=== PATIENT | female | born 1980 | race Two or more races ===

== ENCOUNTER 2018-08-03 19:55 | Emergency (ER) | payer MEDICAID, OTHER ==
[~2018-08-03] VITALS: Ht 167.6 cm; Wt 100.7 kg
--- NOTE | 2018-08-03 20:15 | NUR ---
Pt came to emergency complaining of lower left quadrant pain radiating to the back. Pt states that she has a HX of chronic pancreatitis. Pt stated she went to [facility] this morning and they did labs, ultrasound and gave her pain medications. She states the pain never went away so she went back but ending up coming to [facility] to be evaluated. Pt is AAXO4. Respirations even and unlabored. Pt put on the monitor. Pending eval from ER .
--- NOTE | 2018-08-03 20:33 | NUR ---
KATERINA BENAVIDES at bedside for evaluation.
[2018-08-03] MEDS ORDERED: oxyCODONE/APAP (5/325 MG) 1 UDTAB TABLET ONE (20:43)
[2018-08-03] MEDS ORDERED: oxyCODONE/APAP (5/325 MG) 1 UDTAB TABLET PO ONE (21:00)
--- NOTE | 2018-08-03 21:00 | NUR ---
Pt complaining that she is still in pain, and that the pain medication was not effective. ER PA aware.
[2018-08-03] MEDS ORDERED: KETOROLAC TROMETHAMINE INJ 30 MG/ML VIAL ONE (21:41)
[2018-08-03] MEDS ORDERED: KETOROLAC TROMETHAMINE INJ 30 MG/ML VIAL IM ONE (22:00)
--- NOTE | 2018-08-03 22:08 | NUR ---
Patient discharged to home in stable condition. Written and verbal after care instructions given. Patient verbalizes understanding of instruction. Pt ambulatory with steady gait. NAD NOTED.
[2018-08-03 22:11] VITALS: BP 128/78
== END 2018-08-03 22:15 | disposition home or self-care (01) ==
LOC: ER 20:05
DX: G89.29 Other chronic pain (principal); K86.1 Other chronic pancreatitis; E11.9 Type 2 diabetes mellitus without complications; F10.10 Alcohol abuse, uncomplicated; Y90.9 Presence of alcohol in blood, level not specified; Z98.890 Other specified postprocedural states
CPT/HCPCS: J1885

== ENCOUNTER 2020-02-21 17:03 | Emergency (ER) | payer OTHER ==
[~2020-02-21] VITALS: Ht 167.6 cm; Wt 89.8 kg
--- NOTE | 2020-02-21 17:10 | NUR ---
[id number] CALLED CONCERNED ABOUT PATIENT "WANTS TO DROWN SELF", TO ER BED 11, HOOKED TO MONITOR, CHANGED TO HOSP GOWN, BLANKET PROVIDED. PATIENT DENIES HAVING SUICIDAL THOUGHTS. WHEN ASKED IF REMEMBERS ANYTHING, STATES "I DON'T REMEMBER ANYTHING". SITTER AT BEDSIDE FOR SAFETY. AWAITING MD ARMENTA.
--- NOTE | 2020-02-21 17:16 | NUR ---
KATERINA MONGE AT BEDSIDE FOR EVAL
[2020-02-21] MEDS ORDERED: IV NS 0.9% 1,000 ML BAG IV ONE (17:30)
--- NOTE | 2020-02-21 17:42 | NUR ---
SECURITY AT BEDSIDE FOR WANDING
[2020-02-21 17:45] LABS: BASOPHILS # (AUTO) 0.1 /CMM (0.0-0.2); BASOPHILS % (AUTO) 0.8 % (0.0-2.0); EOSINOPHILS % (AUTO) 0.1 % (0.0-6.0); HEMATOCRIT 41 % (33-45); HEMOGLOBIN 14.1 g/dL (11.5-14.8); LYMPHOCYTES # (AUTO) 3.2 /CMM (0.8-4.8); LYMPHOCYTES % (AUTO) 18.7 % (20.0-44.0); MEAN CORPUSCULAR HGB CONC 34 g/dl (31.0-36.0); MEAN CORPUSCULAR VOLUME 91 fL (82-100); MONOCYTES # (AUTO) 1.1 /CMM (0.1-1.30); MONOCYTES % (AUTO) 6.5 % (2.0-12.0); NEUTROPHILS # (AUTO) 12.8 /CMM (1.8-8.9); NEUTROPHILS % (AUTO) 73.9 % (43.0-81.0); PLATELET COUNT (AUTO) 232 /CMM (150-450); RED BLOOD CELL COUNT(AUTO) 4.54 MIL/uL (4.0-5.2); WHITE BLOOD COUNT (AUTO) 17.4 K/uL (4.3-11.0)
--- NOTE | 2020-02-21 17:46 | NUR ---
BELONGINGS PLACED TO PATIENT LOCKER ROOM
[2020-02-21 17:47] LABS: ALANINE AMINOTRANSFERASE 38 U/L (12-78); ALBUMIN 4.1 g/dL (3.4-5.0); ALKALINE PHOSPHATASE 76 U/L (46-116); ASPARTATE AMINOTRANSFERASE 22 U/L (15-37); BILIRUBIN,DIRECT 0.3 mg/dL (0.0-0.2); BILIRUBIN,TOTAL 2.3 mg/dL (0.2-1.0); CALCIUM, SERUM 9.5 mg/dL (8.5-10.1); CARBON DIOXIDE 20 mmol/L (21-32); CHLORIDE 100 mmol/L (98-107); CREATININE 0.6 mg/dL (0.6-1.3); GLUCOSE 194 mg/dL (74-106); POTASSIUM 3.6 mmol/L (3.5-5.1); SALICYLATE 3.4 mg/dL (2.8-20.0); SODIUM SERUM 136 mmol/L (136-145); TOTAL PROTEIN, SERUM 8.6 g/dL (6.4-8.2); UREA NITROGEN, BLOOD 18 mg/dL (7-18)
[2020-02-21 17:55] LABS: ACETAMINOPHEN 0 ug/ml (10-30); ALCOHOL, BLOOD < 3 mg/dL (0-0)
--- NOTE | 2020-02-21 19:01 | NUR ---
URINE SAMPLE SENT TO LAB
[2020-02-21 19:14] LABS: APPEARANCE,URINE Clear (CLEAR); BILIRUBIN,URINE SMALL (NEGATIVE); BLOOD, URINE Negative Ery/uL (NEGATIVE); COLOR,URINE Yellow (YELLOW); KETONES,URINE >=160 (NEGATIVE); LEUKOCYTE ESTERASE ,URINE Negative (NEGATIVE); NITRITE, URINE Negative (NEGATIVE); PH,URINE 5.5 (5.0-8.0); PROTEIN,URINE 30 mg/dl (NEGATIVE); UGLUCOSE 100 MG/DL mg/dL (NEGATIVE)
--- NOTE | 2020-02-21 19:15 | NUR ---
REPORT GIOVEN TO JIM KEITA FOR AYDE Addendum: 02/21/20 at 1915 by GOLD REPORT GIVEN TO JIM KEITA FOR AYDE
[2020-02-21 19:20] LABS: BACTERIA,URINE Few /HPF (None Seen); RBC,URINE 0-2 /HPF (0-2); WBC,URINE 2-3/HPF /HPF (0-3)
[2020-02-21 19:21] LABS: MUCUS,URINE Moderate /LPF (None Seen); SQUAMOUS EPITHELIAL CELL,UR Few /HPF (None Seen); URINE AMORPHOUS URATE Few /HPF (None Seen)
--- NOTE | 2020-02-21 19:34 | NUR ---
cece cochran notified of pt's abdominal pain. patient cannot describe the type of pain she has. c/o of nausea
[2020-02-21] MEDS ORDERED: MORPHINE SULFATE INJ 4 MG/ML DISP.SYRIN ONE (19:38)
[2020-02-21] MEDS ORDERED: ONDANSETRON HCL/PF 4 MG/2 ML VIAL ONE (19:38)
[2020-02-21] MEDS ORDERED: ONDANSETRON HCL/PF 4 MG/2 ML VIAL IVP ONE (20:00)
[2020-02-21] MEDS ORDERED: MORPHINE SULFATE INJ 2 MG/ML DISP.SYRIN IV ONE (20:00)
--- NOTE | 2020-02-21 20:50 | NUR ---
IS CALLED TO PICK PATIENT UP FROM HOSPITAL.
--- NOTE | 2020-02-21 20:50 | NUR ---
Patient discharged to home in stable condition. Written and verbal after care instructions given. Patient verbalizes understanding of instruction.
--- NOTE | 2020-02-21 20:50 | NUR ---
IV removed. Catheter intact and site benign. Pressure and 4x4 applied to site. No bleeding noted.
--- NOTE | 2020-02-21 21:08 | NUR ---
PATIENT IS PICKED UP BY .
[2020-02-21 21:13] VITALS: BP 127/76
== END 2020-02-21 21:14 | disposition home or self-care (01) ==
LOC: ER 17:06
DX: R53.1 Weakness (principal); E10.9 Type 1 diabetes mellitus without complications; E80.6 Other disorders of bilirubin metabolism; Z98.890 Other specified postprocedural states
CPT/HCPCS: 36415; 76705; 80048; 80076; 80305; 80307; 80329; 81001; 82010; 83690; 84703; 85025; 96361; 96374; 96375; 99284; G0480; J2270; J2405; J7030; 81000-TC

== ENCOUNTER 2020-12-26 02:40 | Inpatient (IN) | payer MEDICAID, OTHER ==
[~2020-12-26] VITALS: Ht 167.6 cm; Wt 81.6 kg
--- NOTE | 2020-12-26 02:50 | NUR ---
PATIENT [id number], PATIENT REFUSING TO ANSWER QUESTIONS. PER EMS POSSIBLE MARIJUANA OD. PATIENT A/OX 2, RR EVEN UNLABORED, NO SOB NOTED. PATIENT CONNECTED TO EMBEDDED SOFTWARE DESIGN ENGINEER AND POX. WILL CONTINUE TO MONITOR.
[2020-12-26] MEDS ORDERED: IV NS 0.9% 1,000 ML BAG IV ONE (03:00)
--- NOTE | 2020-12-26 03:10 | NUR ---
BLOOD GLUCOSE 150, MD AWARE
[2020-12-26 03:18] LABS: BASOPHILS % (AUTO) 0.3 % (0.0-2.0); EOSINOPHILS % (AUTO) 0.1 % (0.0-6.0); HEMATOCRIT 43 % (33-45); HEMOGLOBIN 14.6 g/dL (11.5-14.8); LYMPHOCYTES # (AUTO) 5.1 K/uL (0.8-4.8); LYMPHOCYTES % (AUTO) 30.8 % (20.0-44.0); MEAN CORPUSCULAR HGB CONC 34 g/dl (31.0-36.0); MEAN CORPUSCULAR VOLUME 92 fL (82-100); MONOCYTES % (AUTO) 5.8 % (2.0-12.0); NEUTROPHILS # (AUTO) 10.4 K/uL (1.8-8.9); PLATELET COUNT (AUTO) 202 K/uL (150-450); RED BLOOD CELL COUNT(AUTO) 4.65 MIL/uL (4.0-5.2); WHITE BLOOD COUNT (AUTO) 16.6 K/uL (4.3-11.0)
[2020-12-26 03:20] LABS: CALCIUM, SERUM 8.8 mg/dL (8.5-10.1); CARBON DIOXIDE 20 mmol/L (21-32); CHLORIDE 102 mmol/L (98-107); CREATININE 0.8 mg/dL (0.6-1.3); GLUCOSE 149 mg/dL (74-106); SODIUM SERUM 138 mmol/L (136-145); UREA NITROGEN, BLOOD 12 mg/dL (7-18)
[2020-12-26 03:25] LABS: ALANINE AMINOTRANSFERASE < 6 U/L (12-78); ALBUMIN 4.1 g/dL (3.4-5.0); ALKALINE PHOSPHATASE 75 U/L (46-116); ASPARTATE AMINOTRANSFERASE 0 U/L (15-37); BILIRUBIN,DIRECT 0.2 mg/dL (0.0-0.2); BILIRUBIN,TOTAL 0.9 mg/dL (0.2-1.0); TOTAL PROTEIN, SERUM 7.5 g/dL (6.4-8.2)
[2020-12-26 03:26] LABS: ACETAMINOPHEN 0 ug/ml (10-30); ALCOHOL, BLOOD < 3 mg/dL (0-0)
[2020-12-26] MEDS ORDERED: POTASSIUM CHLORIDE 20 MEQ TAB.PRT.SR PO ONE (03:30)
--- NOTE | 2020-12-26 03:44 | NUR ---
URINE SENT TO LAB
[2020-12-26 03:52] LABS: BILIRUBIN,URINE Negative (NEGATIVE); COLOR,URINE YELLOW (YELLOW); LEUKOCYTE ESTERASE ,URINE Negative (NEGATIVE); NITRITE, URINE Negative (NEGATIVE); PH,URINE 5.5 (5.0-8.0); PROTEIN,URINE Negative (NEGATIVE); UGLUCOSE 500 MG/DL mg/dL (NEGATIVE); UROBILINOGEN,URINE 0.2 EU/dL (0.2)
[2020-12-26 04:49] LABS: ABG BASE EXCESS -2.2 mmol/L; ABG OXYGEN SATURATION 95.8 % (92.0-98.5); ABG PCO2 32.3 mmHg (35.0-45.0); ABG PH 7.432 (7.350-7.450); ABG PO2 81.5 mmHg (75.0-100.0); AaDO2 29.6 mmHg; COHb 6.4 % (0.5-1.5); MetHb 0.4 % (0.0-1.5); O2Hb 89.3 % (94.0-97.0); SITE, ABG Left Radial
--- NOTE | 2020-12-26 05:01 | NUR ---
PATIENT RETURNED FROM CT
--- NOTE | 2020-12-26 05:28 | NUR ---
COVID SWAB COLLECTED AND SENT TO LAB
--- NOTE | 2020-12-26 05:52 | NUR ---
CALL FROM LAB. RAPID COVID NEGATIVE.
[2020-12-26] MEDS ORDERED: MAGNESIUM HYDROXIDE 30 ML UDC PO PRN (06:00)
[2020-12-26] MEDS ORDERED: ACETAMINOPHEN 325 MG TABLET PO PRN (06:00)
[2020-12-26] MEDS ORDERED: ONDANSETRON HCL/PF 4 MG/2 ML VIAL IVP PRN (06:00)
[2020-12-26] MEDS ORDERED: ZOLPIDEM TARTRATE 5 MG TABLET PO PRN (06:00)
[2020-12-26] MEDS ORDERED: IV 1/2NS 1000 ML 1,000 ML IV PRN (06:00)
[2020-12-26] MEDS ORDERED: MAG HYDROX/AL HYDROX/SIMETH 30 ML UDC PO PRN (06:00)
[2020-12-26] MEDS ORDERED: Z GUARD REMEDY 2 OZ OINT TP PRN (06:00)
[2020-12-26 07:25] VITALS: BP 137/84
--- NOTE | 2020-12-26 07:30 | NUR ---
REPORT GIVEN TO KIRTI KEITA FOR AYDE.
--- NOTE | 2020-12-26 07:30 | NUR ---
PATIENT ADMITTED FROM ER WITH JENANDREI REPORTED BY ELISEO KEITA, AO X 2-3, CONFUSED, SCREAMING, INCOHERENCE, REFUSED STAY IN BED, WALK ON HALLWAY AND PACING, ALSO PULLED OUT IV AND REFUSED REINSERT IV FOR IVF & MEDICATIONS. PATIENT STATED "I WANT TO LEAVE HERE!" BUT NOBODY AVAILABLE PIC UP PATIENT AT THIS TIME. WILL CONTINUE TO MONITOR FOR SAFETY.
[2020-12-26] MEDS ORDERED: HALOPERIDOL LACTATE INJ 5 MG/ML VIAL ONE (07:45)
[2020-12-26] MEDS ORDERED: LORAZEPAM INJ 2 MG/ML VIAL ONE (07:45)
--- NOTE | 2020-12-26 07:49 | NUR ---
PT GOT AGITATED WHILE BEING TRANSFER. HOSPITALIST CALLED FOR ORDERS. PT MEDICATED. SEE EMAR.
[2020-12-26] MEDS ORDERED: LORAZEPAM INJ 2 MG/ML VIAL IM ONE ×2 (08:00)
[2020-12-26] MEDS ORDERED: HALOPERIDOL LACTATE INJ 5 MG/ML VIAL IM ONE (08:00)
--- NOTE | 2020-12-26 08:17 | NUR ---
THE PATIENT CALM, COOPERATIVE AND IN STABLE CONDITION. TRANSFERED TO [facility] PER [facility] POLICY.
[2020-12-26] MEDS ORDERED: CITA20TA16 PO (08:38)
[2020-12-26] MEDS ORDERED: GABA-532 PO (08:38)
[2020-12-26] MEDS ORDERED: EZET10TA32 PO (08:38)
[2020-12-26] MEDS ORDERED: INSU100I26 SQ (08:38)
[2020-12-26] MEDS ORDERED: GEMF600T90 PO (08:38)
[2020-12-26] MEDS ORDERED: PANT40TA49 PO (08:38)
[2020-12-26] MEDS ORDERED: EMPA10TA PO (08:38)
[2020-12-26] MEDS ORDERED: METF-440 PO (08:58)
[2020-12-26] MEDS ORDERED: PANTOPRAZOLE 40 MG VIAL IV SCH (09:00)
[2020-12-26] MEDS ORDERED: POTASSIUM CHLORIDE 20 MEQ TAB.PRT.SR PO SCH (10:00)
--- NOTE | 2020-12-26 10:30 | NUR ---
PATIENT ADMITTED FROM ER, ADMIT DX IS ACUTE ENCEPHALOPATHY DUE TO MARIJUANA ABUSED. PATIENT CONFUSED PULLED OUT IV LINE, REFUSED REINSERT IV LINE, ALSO REFUSED EMPLOYEE RELATIONS SPECIALIST ON, SCREAMING, AND INCOHERENCE. PATIENT STATED "I WANT TO LEAVE HERE!' FRIEND PICKED UP PATIENT, WHO SIGNED AMA BEFORE LEAVE FACILITY. PATIENT UNDERSTAND SIGNIFICANT CONSEQUENCES INVOLVED IN LEAVING THE HOSPITAL AT THIS TIME. MD AWARE AND SIGNED AMA.
== END 2020-12-26 10:30 | disposition left against medical advice (07) | DRG 770 ==
LOC: ER 02:42 → TELE 07:40
PROVIDERS: ADMIT Student in an Organized Health Care Education/Training Program; ATTEND Student in an Organized Health Care Education/Training Program
DX: F12.929 Cannabis use, unspecified with intoxication, unspecified (principal); E11.65 Type 2 diabetes mellitus with hyperglycemia; K86.1 Other chronic pancreatitis; Z20.822 Contact with and (suspected) exposure to COVID-19; Z79.4 Long term (current) use of insulin; Z98.890 Other specified postprocedural states; F43.9 Reaction to severe stress, unspecified; D72.829 Elevated white blood cell count, unspecified; E87.6 Hypokalemia
CPT/HCPCS: 36415; 36600; 70450-TC; 80048-TC; 80076-TC; 84443-TC; 84484-TC; 84703-TC; 85025-TC; 87081-TC; C9803; G0378; G0480; J1630; J2060; J7030

== ENCOUNTER 2021-12-27 07:05 | Emergency (ER) | payer OTHER ==
[~2021-12-27] VITALS: Ht 170.2 cm; Wt 93.0 kg
[~2021-12-27 07:05] MED LIST: CITA20TA16 PO; EMPA10TA PO; EZET10TA32 PO; GABA-532 PO; GEMF600T90 PO; INSU100I26 SQ; METF-440 PO; PANT40TA49 PO
--- NOTE | 2021-12-27 07:18 | NUR ---
Dr. Anglin at bedside
[2021-12-27] MEDS ORDERED: ONDANSETRON HCL/PF 4 MG/2 ML VIAL ONE (07:28)
[2021-12-27] MEDS ORDERED: KETOROLAC TROMETHAMINE INJ 30 MG/ML VIAL ONE (07:28)
[2021-12-27] MEDS ORDERED: ACETAMINOPHEN ES 500 MG TABLET ONE (07:29)
[2021-12-27] MEDS ORDERED: IV NS 0.9% 500 ML BAG IV ONE (07:30)
[2021-12-27] MEDS ORDERED: ONDANSETRON HCL/PF 4 MG/2 ML VIAL IVP ONE (07:30)
[2021-12-27] MEDS ORDERED: ACETAMINOPHEN ES 500 MG TABLET PO ONE (07:30)
[2021-12-27] MEDS ORDERED: IBUP-1955 PO (07:45)
[2021-12-27] MEDS ORDERED: ONDA4TAB5 PO (07:45)
--- NOTE | 2021-12-27 07:51 | NUR ---
IVF, started - NS 1 liter, tylenol, and toradol.
--- NOTE | 2021-12-27 07:52 | NUR ---
Addendum- IV infusion: Toradol 30 mg IVP Time given: 0740 AM, PIV # 20 LAC, port # 2
[2021-12-27 07:54] LABS: BASOPHILS % (AUTO) 0.3 % (0.0-2.0); EOSINOPHILS % (AUTO) 0.1 % (0.0-6.0); HEMATOCRIT 38 % (33-45); HEMOGLOBIN 12.7 g/dL (11.5-14.8); LYMPHOCYTES # (AUTO) 0.6 K/uL (0.8-4.8); LYMPHOCYTES % (AUTO) 5.2 % (20.0-44.0); MEAN CORPUSCULAR HGB CONC 34 g/dl (31.0-36.0); MEAN CORPUSCULAR VOLUME 91 fL (82-100); NEUTROPHILS # (AUTO) 10.8 K/uL (1.8-8.9); NEUTROPHILS % (AUTO) 86.4 % (43.0-81.0); PLATELET COUNT (AUTO) 166 K/uL (150-450); RED BLOOD CELL COUNT(AUTO) 4.11 MIL/uL (4.0-5.2); WHITE BLOOD COUNT (AUTO) 12.6 K/uL (4.3-11.0)
--- NOTE | 2021-12-27 07:59 | NUR ---
labs, ua, flu and covid swab sent
[2021-12-27 08:10] LABS: ALBUMIN 3.4 g/dL (3.4-5.0); BILIRUBIN,DIRECT 0.3 mg/dL (0.0-0.2); BILIRUBIN,TOTAL 0.8 mg/dL (0.2-1.0); CALCIUM, SERUM 9.1 mg/dL (8.5-10.1); CREATININE 0.9 mg/dL (0.6-1.3); POTASSIUM 3.1 mmol/L (3.5-5.1); TOTAL PROTEIN, SERUM 7.8 g/dL (6.4-8.2)
[2021-12-27 08:15] LABS: BILIRUBIN,URINE SMALL (NEGATIVE); COLOR,URINE YELLOW (YELLOW); LEUKOCYTE ESTERASE ,URINE MODERATE (NEGATIVE); NITRITE, URINE POSITIVE (NEGATIVE); PROTEIN,URINE >=300 mg/dl (NEGATIVE); UGLUCOSE 250 MG/DL mg/dL (NEGATIVE); UROBILINOGEN,URINE 0.2 EU/dL (0.2)
[2021-12-27] MEDS ORDERED: CEPH500C2 PO (08:37)
[2021-12-27 08:42] LABS: BACTERIA,URINE 3+ /HPF (None Seen); SQUAMOUS EPITHELIAL CELL,UR Few /HPF (None Seen); WBC,URINE TOO NUMEROUS TO COUN /HPF (0-3)
[2021-12-27] MEDS ORDERED: CEFTRIAXONE 1 G in IV D5W 50 ML IV ONE (09:00)
[2021-12-27 09:34] VITALS: BP 128/71
--- NOTE | 2021-12-27 09:34 | NUR ---
Patient discharged to home in stable condition. Written and verbal after care instructions given. Patient verbalizes understanding of instruction.IV removed. Catheter intact and site benign. Pressure and 4x4 applied to site. No bleeding noted.
== END 2021-12-27 09:34 | disposition home or self-care (01) ==
LOC: ER 07:13
DX: J11.1 Influenza due to unidentified influenza virus with other respiratory manifestations (principal); Z20.822 Contact with and (suspected) exposure to COVID-19; N39.0 Urinary tract infection, site not specified; R00.0 Tachycardia, unspecified; E87.6 Hypokalemia; R31.9 Hematuria, unspecified; E78.5 Hyperlipidemia, unspecified; E11.9 Type 2 diabetes mellitus without complications; Z79.4 Long term (current) use of insulin; Z79.84 Long term (current) use of oral hypoglycemic drugs
CPT/HCPCS: 36415; 71045; 80048; 80076; 81001; 85025; 87040 ×2; 87077; 87086; 87186; 87804; 93005; 96361; 96365; 96375; 99285; C9803; J0696; J1885; J2405; J7030; J7060; U0003